=== PATIENT | male | born 1995 | race Caucasian/White ===

== ENCOUNTER 2022-04-01 09:14 | Outpatient (CLI) | payer OTHER ==
--- NOTE | 2022-04-01 09:53 | SLEEP CARE CONSULTATION ---
Information from patient questionnaire entered by Jena Diallo. I have reviewed and concur with the information entered by Jena Diallo. This document represents the service I personally performed and the decisions made by me, Birgit Frost ARNP. History of Present Illness Service Date and Time: 04/01/2022913 Reason for Visit: New patient Chief Complaint: reports: Insomnia, Unrefreshed sleep, Snoring, Excessive daytime sleepiness, Fatigue, Frequent awakenings at night Date of Onset: 3YRS Usual bedtime: 10PM Time it takes to fall asleep: 1-2HRS Snores at night: Yes Observed to quit breathing while asleep: No Sleeps alone due to snoring: Yes Number of times waking at night: 2-3 Reasons for waking at night: reports: Gasping for air, Bathroom. denies: Choking, Snoring Toss, Turn, or Twitch while sleeping: Yes Recalls having dreams: No Usually gets out of bed at: 6AM Feels refreshed in the morning: No Morning headache: Yes (almost every morning; resolved 1 hr MOST OF THE TIME IT DOES NOT RESOLVE) Sleepy or fatigued during the day: Yes Ever fallen asleep while driving: No (BUT I GET VERY SLEEPY; drowsy driving, no accidents) Takes day naps: Yes (try not to; occasional unintentional nap for 15 mins or so) Dreams during day naps: No Prior sleep studies: No Additional HPI information: I had the pleasure of seeing JACKIE GUERRERO today regarding the possibility of him having a sleep disorder. His current complaints are excessive daytime sleepiness, fatigue, frequent night awakenings, snoring and unrefreshed sleep. He feels he has had sleeping problems for about 2 years. He states he is "twitching" in his sleep. He will move his arm and hit the wall or his in bed. His whole body with twitch and he will "just jump". He states it takes 1-2 hours to fall asleep. He states after he goes to sleep he will wake up at least 3 times a night for bathroom, gasping or unknown reasons. His has noted a loud snore. He has woke up gasping for air with a whole body jerk occasionally. - Parasomnia Symptoms Ever been unable to move upon waking from sleep: No Walks in sleep: No Talks in sleep: Yes Ever acted out dreams in sleep: No Ever felt weak in the knees when startled or emotional: No Bothered by creepy, crawly, restless sensations in legs: No Problems with memory or concentration: Yes (concentration mostly; some trouble remembering things) Subjective Initial [place] Sleepiness Scale score: 19 (04/01/23) Past Medical History Past Medical History: reports: Hypertension Social History The patient's occupation is a [employer]. Patient is and lives in . Have you smoked in the past 12 months: No Alcohol use: No Caffeine use: Yes Caffeine amount and frequency: 2 EVERYDAY Family History Family history of sleep disordered breathing: No Allergies and Home Medications Known drug allergies: No Drug allergies reviewed: Yes (NKDA) Home medication list reviewed: Yes Allergy and home medication list: Medications: Lisinopril 20 mg daily Review of Systems Weight gain over past 5 years: 25 Weight loss over past 5 years: 0 Cardiovascular: reports: high blood pressure Gastrointestinal: denies: heartburn Urinary: reports: frequency Neurological: reports: head trauma (2-3 yrs ago). denies: headaches Psychiatric: denies: anxiety, depression Ear/Nose/Throat: reports: wisdom teeth removed. denies: tonsillectomy Endocrine: reports: sluggishness, unexplained weakness Immunologic: reports: allergies to food or environment Physical Exam Vital signs obtained and entered by: Blood Pressure: 124/66 (LEFT ARM) Cuff size: regular Heart Rate: 70 O2 Saturation: 97 Height: 5 ft 10 in Weight: 218 lb 9.6 oz (with clothes/boots on) Body Mass Index: 31.4 BMI Classification: Obese Neck circumference: 15.5 Mouth and throat: narrow oropharynx Soft palate: long Hard palate: normal Uvula: normal Uvula visualization: 50% Mallampati Class II Tongue: enlarged in size with teeth allen on lateral edges Tonsils: small Neck: normal w/o lymphadenopathy or thyromegaly Heart: regular rate and rhythm Lungs: clear bilaterally Impression and Plan 1. Suspected Obstructive Sleep Apnea-Hypopnea Syndrome, as suggested by a history of loud and irregular snoring, gasping or choking in sleep, morning headache, frequent awakening during the night, unrefreshed sleep, cognitive impairment, and excessive daytime sleepiness. Narrow oropharynx and obesity are common predisposing factors for obstructive sleep apnea-hypopnea syndrome. I recommend proceeding to polysomnography to confirm the diagnosis and to assess severity. If the patient has significant sleep disordered breathing, a manual CPAP titration study will also be performed to find the optimal treatment pressure. I informed the patient of what the sleep studies involve and after some discussion, obtained agreement to proceed. The pathophysiology of obstructive sleep apnea-hypopnea syndrome was discussed with the patient and health risks of cardiovascular and cerebrovascular disease if not treated. Risks of drowsy driving discussed in detail and patient advised to avoid long distance driving and to lug breaker and wire puller at the first sign of drowsiness. Patient agreed to plan. * Schedule polysomnography * Avoid long distance driving or driving when feeling sleepy. * Avoid alcohol, sedative and muscle relaxant around bedtime. * Attempt to lose weight. * Review instructions provided by trained office staff on how to prepare for the sleep study. * Return for follow-up after sleep study completed. Counseling Topics: Weight loss health impact Visit Type: In Office Time Spent with Patient (minutes): 31 Provider Statement: I spent 100% of the Face to Face Visit with the patient with greater than 50% spent counseling the patient and coordination of care.
[2022-04-01 09:54] VITALS: BP 124/66
== END 2022-04-01 09:15 | disposition home or self-care (01) ==
LOC: SC 09:14
PROVIDERS: ATTEND Nurse Practitioner Family
DX: R06.83 Snoring (principal); R51.9 Headache, unspecified; R41.89 Other symptoms and signs involving cognitive functions and awareness; G47.10 Hypersomnia, unspecified; G47.8 Other sleep disorders; E66.9 Obesity, unspecified; Z68.31 Body mass index [BMI] 31.0-31.9, adult
CPT/HCPCS: 99203; 99212

== ENCOUNTER 2022-05-13 13:53 | Outpatient (CLI) | payer OTHER | END 2022-05-13 13:54 | disposition home or self-care (01) | LOC: SC 13:53 | PROVIDERS: ATTEND Nurse Practitioner Family | DX: Z53.9 Procedure and treatment not carried out, unspecified reason (principal) ==

== ENCOUNTER 2022-05-16 20:31 | Outpatient (CLI) | payer OTHER | END 2022-05-16 20:32 | disposition home or self-care (01) | LOC: SC 20:31 | PROVIDERS: ATTEND Nurse Practitioner Family | DX: R06.83 Snoring (principal); G47.8 Other sleep disorders; R51.9 Headache, unspecified; G47.10 Hypersomnia, unspecified; R53.83 Other fatigue; I10 Essential (primary) hypertension | CPT/HCPCS: 95810 ==

== ENCOUNTER 2022-05-22 11:21 | Outpatient (CLI) | payer OTHER ==
[2022-05-22 11:16] VITALS: BP 113/60
--- NOTE | 2022-05-22 11:16 | SLEEP CARE CONSULTATION ---
Information from patient questionnaire entered by Jena Diallo. I have reviewed and concur with the information entered by Jena Diallo. This document represents the service I personally performed and the decisions made by , Birgit Frost ARNP. History of Present Illness Service Date and Time: 05/22/2022 1100 Initial [place] Sleepiness Scale score: 19 (04/01/23) Current [place] Sleepiness Scale score: 20 (05/22/22) Additional HPI information: JACKIE GUERRERO returns via telehealth visit for follow up and results of the recently performed polysomnography. The patient was informed of the following findings: No significant sleep disordered breathing with an average AHI of 1.6 and berhane oxygen saturation of 89%. I explained the pathophysiology behind obstructive sleep apnea. Patient does not have sleep apnea and was advised how weight gain could increase the risk of developing sleep apnea in the future. I strongly encouraged the patient to lose weight. Patient has moderate to loud snoring. Snoring can be reduced by weight loss. Weight loss is best achieved with diet consult. Patient instructed to contact PCP for referral. Snoring can also be treated with an oral appliance from a dentist. Advised to check insurance coverage. In addition, an ENT evaluation can be do to see if other treatment is indicated. Patient does not drink alcohol. Patient was cautioned about risks of drowsy driving until sleepiness symptoms resolve. Sleep Study - Results Type of Sleep Study: Polysomnography (COMPLETED 05/16/22) Prior sleep studies: No Polysomnography/Home Sleep Study results: IMPRESSION: The quality of the study is good. The patient had normal sleep efficiency. The sleep architecture was normal as well. Respiratory monitoring showed no significant sleep disordered breathing (AHI = 1.6) or hypoxia (berhane oxygen saturation of 89%). The few respiratory events occurred during supine REM sleep (supine AHI = 1.5; non-supine = 1.74). Snore was moderate to loud in intensity. There was no significant periodic leg movement of sleep. Cardiac rhythm was normal sinus rhythm without significant arrhythmia. No abnormal behavior (parasomnia) observed during the night. Allergies and Home Medications Known drug allergies: No Drug allergies reviewed: Yes Home medication list reviewed: Yes (no changes) Allergy and home medication list: Allergies No Known Drug Allergies Allergy Review of Systems Review of systems same as previous: Yes (no changes) Physical Exam Vital signs obtained and entered by: JENA Henderson MA Blood Pressure: 113/60 (PER PT ) Height: 5 ft 10 in (PER PT) Weight: 208 lb (PER PT) Body Mass Index: 29.8 BMI Classification: Overweight Impression and Plan 1. Insomnia, unspecified. Insomnia is generally caused by an irregular sleep schedule, spending too much time in bed, napping, caffeine, electronics, lack of a relaxing bedtime ritual and clock watching. Other factors can include anxiety/depression, pain, medications, and obstructive sleep apnea. A sleep diary will be completed for the next 2 weeks to assist implementation of r ecommendations and for further evaluation of sleep concerns. 2. Snoring but no significant sleep disordered breathing. Patient advised that often weight loss will reduce snoring as well as apnea risk. An oral appliance can also be used for snoring. This would require a dental consultation. Patient cautioned not to use other online appliances as can cause bite issues. A list of accredited dentists in [facility] and one local dentist who makes oral appliances is available in office as needed. Patient is advised to check if insurance will cover. An ENT consult can also be helpful to determine if any other treatment is an option. * Follow up with Dr. Ramey for insomnia * Attempt to lose weight * Avoid alcohol consumption near bedtime * The patient is cautioned about driving until sleepiness is completely resolved. * Return in 1-2 months for follow up. Counseling Topics: Weight loss health impact Follow up with Sleep Care in: 1-2 months Visit Type: Telehealth Video Video Type: DoxTripMark Patient Location: [facility] Location of Provider: Office Patient agrees and consents to this telehealth visit type: Yes Patient agrees to have their insurance billed: Yes Time Spent with Patient (minutes): 20 Provider Statement: I spent 100% of the Telehealth Video Call with the patient with greater than 50% spent counseling the patient and coordination of care.
== END 2022-05-22 11:22 | disposition home or self-care (01) ==
LOC: SC 11:21
PROVIDERS: ATTEND Nurse Practitioner Family
DX: G47.00 Insomnia, unspecified (principal); R06.83 Snoring; E66.3 Overweight; Z68.29 Body mass index [BMI] 29.0-29.9, adult

== ENCOUNTER 2022-07-12 07:53 | Outpatient (CLI) | payer OTHER ==
--- NOTE | 2022-07-16 10:01 | MRI Report ---
PROCEDURE: KNEE WO - LT INDICATIONS: LEFT KNEE PAIN TECHNIQUE: Noncontrast sagittal PD fast spin echo and T2 fast spin echo with fat saturation, sagittal 3-D gradie nt sequence with fat saturation; coronal T1 spin echo and PD fast spin echo with fat saturation, and axial PD fast spin echo with fat saturation through the knee. COMPARISON: None. FINDINGS: Image quality: Excellent. Menisci: There is oblique tear involving the peripheral aspect of the posterior horn the medial menis cus involving the intra-articular surface (series 6 image 10). The lateral meniscus demonstrates normal morphology and internal signal. The meniscal root ligaments appear intact. Cruciate ligaments: The anterior and posterior cruciate ligaments appear intact. Medial structures: The medial collateral ligament appears intact. The semimembranosus tendon insert ions and meniscocapsular junction appear intact. Visualized portions of the pes anserinus tendons ap pear normal. No abnormal bursal fluid. Lateral structures: The lateral collateral ligament and the biceps femoris tendon appear intact. Th e popliteus tendon appears normal. Iliotibial band appears normal. Anterior structures: The quadriceps and patellar tendons appear intact. Patellar alignment is navi l. No femoral trochlear dysplasia or ventral trochlear prominence. No edema in the infrapatellar fa t pad. Bones and cartilage: No bone marrow contusions or fractures. The cartilage of the medial and latera l femorotibial compartments, as well as the patellofemoral compartment, appears normal in thickness. Joint space: There is trace knee joint fluid. No Juarez's cyst. Normal appearing synovial plicae ar e incidentally noted. IMPRESSION: 1. Oblique tear of the posterior horn the medial meniscus.. Reviewed by: Aristeo Wills MD on 07/16/2022 10:00 AM PDT Approved by: Aristeo Wills MD on 07/16/2022 10:00 AM PDT Station ID: [id number]
== END 2022-07-12 07:54 | disposition home or self-care (01) ==
LOC: DI 07:53
PROVIDERS: ATTEND Physician Assistant
DX: S83.242A Other tear of medial meniscus, current injury, left knee, initial encounter (principal)

== ENCOUNTER 2022-09-13 22:49 | Emergency (ER) | payer OTHER ==
[2022-09-13 23:00] VITALS: BP 150/80
[2022-09-13] MEDS ORDERED: KETOROLAC 30 MG/ML VIAL IM STA (23:14)
--- NOTE | 2022-09-13 23:18 | ED Physician Documentation ---
PD HPI LOWER EXT INJURY - Stated complaint Stated Complaint: LFT SHOULDER/KNEE PX - Chief complaint Chief Complaint: Ext Problem - History obtained from History obtained from: Patient - Additional information Additional information: 27-year-old male presents for left knee pain and swelling. Patient states that he was diagnosed with a torn meniscus and intermittently receives cortisone injections. He states 4 days ago he received another cortisone injection and since that time he has had pain and swelling. He went to his orthopedic doctor's office and was told that he does not have an infection, but was not given a diagnosis or instructions on how to manage his pain. Review of Systems Constitutional: denies: Fever, Chills Musculoskeletal: reports: Joint pain, Joint swelling. denies: Neck pain, Back pain, Extremity pain PD PAST MEDICAL HISTORY - Present Medications Home Medications: Ambulatory Orders Medication Instructions Recorded Confirmed Lisinopril [Zestril] See Rx Instructions .ROUTE .COMPLEX 04/01/22 05/22/22 Diclofenac Sodium 1% Gel [Voltaren 2 gm TOP QID #50 gm 09/13/22 Gel] Naproxen 250 mg PO BID PRN #15 tablet 09/13/22 - Allergies Allergies/Adverse Reactions: Allergies Allergy/AdvReac Type Severity Reaction Status Date / Time No Known Drug Allergies Allergy Verified 09/13/22 22:56 PD ED PE NORMAL - Vitals Vital signs reviewed: Yes - General General: Alert and oriented X 3, No acute distress, Well developed/nourished - HEENT HEENT: Atraumatic - Cardiac Cardiac: RRR, Strong equal pulses - Abdomen Abdomen: Soft, Non tender, Non distended - Back Back: No CVA TTP, No spinal TTP - Derm Derm: Normal color, Warm and dry, No rash - Extremities Extremities: No deformity, Normal ROM s pain, Other (L knee with minimal swelling. No warmth, no erythema. POCUS shows trace joint effusion medial and lateral.) - Neuro Neuro: Alert and oriented X 3, anthropology department chair 2-12 intact, No motor deficit, Normal speech Results - Vitals Vitals: Vital Signs - 24 hr 09/13/22 22:56 Temperature 36.5 C Heart Rate 72 Respiratory 16 Rate Blood Pressure 150/80 H O2 Saturation 97 Oxygen O2 Source Room air PD Medical Decision Making - ED course Complexity details: reviewed old records, reviewed results, re-evaluated patient, considered differential, d/w patient ED course: Pain and swelling after knee injection. There is no warmth, there is no fluctuance, patient has full range of motion of the joint and is ambulatory without difficulty, there is no clinical suspicion for septic joint at this time. Possible bruising after injection procedure. Patient will be placed in an Triston wrap bandage. He was counseled to wear the bandage with movement to help with swelling. Will be given Voltaren gel and naproxen for anti-inflammatory properties. Counseled to take these medications with Tylenol and to follow RICE instructions, which were discussed at bedside. Patient will call his orthopedic surgeon's office Thursday morning for follow-up appointment. Departure - Departure Disposition: , Self Care Clinical Impression: Bursitis Condition: Stable Instructions: ED Bursitis, ED RICE Prescriptions: Naproxen 250 mg PO BID PRN #15 tablet PRN Reason: Pain Diclofenac Sodium 1% Gel [Voltaren Gel] 2 gm TOP QID #50 gm Comments: TAKE THESE MEDICATIONS WITH TYLENOL. LIGHT DUTY UNTIL CLEARED BY ORTHOPEDIC SURGERY Forms: PCP List Discharge Date/Time: 09/13/22 23:33
[2022-09-13] MEDS ORDERED: KETOROLAC 30 MG/ML VIAL ONE (23:32)
== END 2022-09-13 23:33 | disposition home or self-care (01) ==
LOC: ED 22:49
DX: M71.9 Bursopathy, unspecified (principal)
CPT/HCPCS: 96372; 99283

== ENCOUNTER 2023-04-06 09:05 | Outpatient (CLI) | payer OTHER ==
--- NOTE | 2023-04-06 09:42 | SLEEP CARE CONSULTATION ---
Information from patient questionnaire entered by Marty Diallo. I have reviewed and concur with the information entered by Marty Diallo. This document represents the service I personally performed and the decisions made by me, Julius Garcia MD, [facility]. History of Present Illness Service Date and Time: 04/06/2023 0905 Reason for follow up: annual (LAST SEEN 05/2022 NOT USING CPAP) Prior sleep studies: No Type of Sleep Study: Polysomnography (COMPLETED 05/16/22) HPI additional information: Mr. Welsh complains of insomnia. He had a sleep study here last year that was normal. Since then his has seen him quit breathing more at night. She occasionally has to wake him up to breathe. He continues to have difficulty falling asleep at the beginning of the night. On weeknights, he goes to bed at 10 pm and gets up at 6 am. It takes him 1 2 hours to fall asleep. On weekends, he goes to bed at 11 pm and does not get up until 9 am. He does not take any sleep aid because they do not work. He has lost about 10 lbs since last year. Sleep Study - Results Type of Sleep Study: Polysomnography (COMPLETED 05/16/22) Prior sleep studies: No Subjective Initial [place] Sleepiness Scale score: 19 (04/01/23) Current [place] Sleepiness Scale score: 19 (04/06/23) Allergies and Home Medications Drug allergies reviewed: Yes Home medication list reviewed: Yes Allergy and home medication list: Allergies No Known Drug Allergies Allergy (Verified 04/02/23 13:51) Review of Systems Review of systems same as previous: Yes Physical Exam Vital signs obtained and entered by: MARYT Henderson MA Blood Pressure: 149/78 (RIGHT ARM) Cuff size: regular Heart Rate: 71 O2 Saturation: 97 Height: 5 ft 10 in Weight: 212 lb 9.6 oz Body Mass Index: 30.4 BMI Classification: Obese Impression and Plan IMPRESSION: 1. Insomnia, due to delayed sleep phase syndrome. Because he wakes up significantly later on weekends3 hourshis physiological bedtime is not until 1 am, assuming the normal sleep requirement of 8 hours a night. I gave him the analogy of living on the [employer] but having to fly [facility] to work every Thursday. The 3-hour time difference will keep him in a constant jet lag condition. The solution is to maintain his wakeup time at 6 am every day. 2. Suspected sleep apnea. According to the patient, his sees him quit breathing at night more frequently now. I will order another in-laboratory polysomnography. PLAN: 1. Maintain a regular wake up time and spend no more than 8 hours in bed at night. Avoid naps. 2. Schedule an in-laboratory polysomnography. 3. Return for follow up after the sleep study. Follow up with Sleep Care in: 1-2 months Visit Type: In Office Time Spent with Patient (minutes): 15 Provider Statement: I spent 100% of the Face to Face Visit with the patient with greater than 50% spent counseling the patient and coordination of care.
[2023-04-06 09:44] VITALS: BP 149/78; O2SAT 97
== END 2023-04-06 09:06 | disposition home or self-care (01) ==
LOC: SC 09:05
PROVIDERS: ATTEND Internal Medicine Pulmonary Disease
DX: G47.21 Circadian rhythm sleep disorder, delayed sleep phase type (principal); G47.00 Insomnia, unspecified; R06.81 Apnea, not elsewhere classified; E66.9 Obesity, unspecified; Z68.30 Body mass index [BMI] 30.0-30.9, adult
CPT/HCPCS: 99212

== ENCOUNTER 2023-05-01 20:43 | Outpatient (CLI) | payer OTHER | END 2023-05-01 20:44 | disposition home or self-care (01) | LOC: SC 20:43 | PROVIDERS: ATTEND Internal Medicine Pulmonary Disease | DX: R06.83 Snoring (principal); R06.81 Apnea, not elsewhere classified; G47.00 Insomnia, unspecified; E66.3 Overweight; Z68.31 Body mass index [BMI] 31.0-31.9, adult | CPT/HCPCS: 95810 ==

== ENCOUNTER 2023-05-07 09:49 | Outpatient (CLI) | payer OTHER ==
--- NOTE | 2023-05-07 10:13 | Sleep Patient Instructions ---
Sleep Center Visit Summary - Patient Visit Information Reason for Visit: Sleep study follow-up - Patient Instructions Instructions Attached: Snoring Tips Prevent, Insomnia Tx Additional Instructions: Your sleep study today was negative for significant sleep disordered breathing. You were found to have episodes of snoring. There are different ways to control snoring including weight loss, oral devices made by a dentist or surgical options through ENT specialist. You should not use oral devices that do not fit properly because they can affect your bite. You should also check insurance coverage of oral devices for snoring because they may not be cover well. You may obtain a referral to an ENT specialist through your primary provider. Follow-up as needed. - Clinic Information Contact: [facility] [address] [place] [address] [email or web address] T: [phone]
--- NOTE | 2023-05-07 10:16 | SLEEP CARE CONSULTATION ---
Information from patient questionnaire entered by Jena Diallo. I have reviewed and concur with the information entered by Jena Diallo. This document represents the service I personally performed and the decisions made by , Birgit Frost ARNP. History of Present Illness Service Date and Time: 05/07/2023 0949 Initial [place] Sleepiness Scale score: 19 (04/01/23) Current [place] Sleepiness Scale score: 17 Additional HPI information: JACKIE GUERRERO returns for follow up and results of the recently performed polysomnography. The patient was informed of the following findings: No significant sleep disordered breathing with an average AHI of 2.8 and berhane oxygen saturation of 85%. I explained the pathophysiology behind obstructive sleep apnea. Patient does not have sleep apnea and was advised how weight gain could increase the risk of developing sleep apnea in the future. I strongly encouraged the patient to lose weight. Patient has loud snoring. Snoring can be reduced by weight loss. Weight loss is best achieved with diet consult. Patient instructed to contact PCP for referral. Snoring can also be treated with an oral appliance from a dentist. Advised to check insurance coverage. In addition, an ENT evaluation can be do to see if other treatment is indicated. Patient counseled not drink alcohol less than 4 hours before bedtime as it can increase snoring and apnea. Patient was cautioned about risks of drowsy driving until sleepiness symptoms resolve. Patient denies drowsy driving. Sleep Study - Results Type of Sleep Study: Polysomnography (COMPLETED 05/16/22 05/01/23) Prior sleep studies: No Polysomnography/Home Sleep Study results: IMPRESSION: The quality of the study is good. The patient had normal sleep efficiency. The sleep architecture was also normal. Respiratory monitoring showed no significant sleep disordered breathing (AHI = 2.8) or hypoxia (ber[place] oxygen saturation of 85% and only 0.3% to the total sleep time was spent with oxygen saturation below 90%). The patient slept adequately in supine position (supine AHI = 3.7; non-supine = 2.03). Snore was loud in intensity. There was no significant periodic leg movement of sleep. Cardiac rhythm was normal sinus rhythm without significant arrhythmia. No abnormal behavior (parasomnia) observed during the night. Allergies and Home Medications Known drug allergies: No Drug allergies reviewed: Yes Home medication list reviewed: Yes (no changes) Allergy and home medication list: Allergies No Known Drug Allergies Allergy (Verified 05/06/23 15:03) Review of Systems Review of systems same as previous: Yes (no changes) Physical Exam Vital signs obtained and entered by: BIRGIT ADKINS Blood Pressure: 149/86 Cuff size: regular (right arm) Heart Rate: 68 O2 Saturation: 97 Height: 5 ft 10 in Weight: 209 lb 9.6 oz Body Mass Index: 30.0 BMI Classification: Obese Impression and Plan 1. Snoring but no significant sleep disordered breathing. Patient advised that often weight loss will reduce snoring as well as apnea risk. An oral appliance can also be used for snoring. This would require a dental consultation. Patient cautioned not to use other online appliances as can cause bite issues. Patient is advised to check if insurance will cover. An ENT consult can also be helpful to determine if any other treatment is an option. I also discussed with patient that about ways to help deal with his insomnia. He states he has an evaluation with behavioral health for his anxiety. I also reviewed with him how anxiety can interrupt the quality of sleep and that he should move forward with evaluation and treatment of his anxiety to help with his sleep overall. He voiced understanding. 2. Obesity, unspecified. Currently patients BMI is 30. Obesity increases the risk of apnea, CPAP pressure requirements and overall health risks especially cardiovascular and diabetes. Thus patient is advised to lose weight. * Attempt to lose weight * Avoid alcohol consumption near bedtime * The patient is cautioned about driving until sleepiness is completely resolved. * Return as needed for follow up. Counseling Topics: Weight loss health impact Follow up with Sleep Care in: as needed Visit Type: In Office Time Spent with Patient (minutes): 21 Provider Statement: I spent 100% of the Face to Face Visit with the patient with greater than 50% spent counseling the patient and coordination of care.
[2023-05-07 10:24] VITALS: BP 149/86; O2SAT 97
== END 2023-05-07 09:50 | disposition home or self-care (01) ==
LOC: SC 09:49
PROVIDERS: ATTEND Nurse Practitioner Family
DX: R06.83 Snoring (principal); E66.9 Obesity, unspecified; Z68.30 Body mass index [BMI] 30.0-30.9, adult
CPT/HCPCS: 99212; 99213

== ENCOUNTER 2023-08-29 08:13 | Outpatient (CLI) | payer OTHER ==
--- NOTE | 2023-08-31 13:30 | MRI Report ---
PROCEDURE: Knee LT WO INDICATIONS: L KNEE PAIN; persistent left knee pain ongoing since left meniscal tear repair November 2022. TECHNIQUE: Noncontrast sagittal PD fast spin echo and T2 fast spin echo with fat saturation, sagittal 3-D gradie nt sequence with fat saturation; coronal T1 spin echo and PD fast spin echo with fat saturation, and axial PD fast spin echo with fat saturation through the knee. COMPARISON: Left knee MR 07/12/2022. FINDINGS: Image quality: Excellent. Anterior cruciate ligament: Intact. Posterior cruciate ligament: Intact. Medial collateral ligament: Intact. Lateral collateral ligament: Intact. Medial meniscus: Intermediate signal in the posterior horn of the medial meniscus may represent a pa rameniscal granulation tissue. No focal fluid signal is seen to suggest recurrent tearing. Lateral meniscus: Intact. Medial and lateral tendons: The semimembranosus tendon insertions appear intact. Visualized portion s of the pes anserinus tendons appear normal. The popliteus tendon appears intact. Iliotibial band appears normal. Anterior structures: The patellar tendon and the distal quadriceps tendon appear intact. No patellar subluxation. No femoral trochlear dysplasia or ventral trochlear prominence. Mild scarring is seen in the infrapatellar fat pad. Bones: There is mild osseous edema at the anteromedial aspect of the medial tibial plateau. There is an associated horizontal incomplete linear T1 hypointensity that could represent an incomplete fract ure line. Mild edema is also seen at the medial aspect of the medial femoral condyle. Medial femorotibial cartilage: No focal cartilage defect. Lateral femorotibial cartilage: No focal cartilage defect. Patellofemoral cartilage: No focal cartilage defect. Soft tissues: There is a small joint effusion. There is a trace medial popliteal cyst. The musculat ure surrounding the knee is normal in bulk. IMPRESSION: 1.Postsurgical changes from prior medial meniscal repair. Intermediate signal intensity in the set up operator tool ior horn medial meniscus is most likely fibrovascular granulation tissue. No definite recurrent tear identified. 2.Mild osseous edema and linear hypointensity at the anteromedial aspect of the medial tibial plateau is suspicious for mild acute stress reaction or early stress fracture. Osseous edema is also seen at the medial femoral condyle. Mild osseous contusions could appear similarly. 3.Small joint effusion. Reviewed by: Agustin Iyer MD on 08/31/2023 1:29 PM PDT Approved by: Agustin Iyer MD on 08/31/2023 1:29 PM PDT Station ID: [id number]
== END 2023-08-29 08:14 | disposition home or self-care (01) ==
LOC: DI 08:13
PROVIDERS: ATTEND Nurse Practitioner Family
DX: M25.562 Pain in left knee (principal); M25.462 Effusion, left knee; R60.0 Localized edema